=== PATIENT | female | born 1995 | race Caucasian/White ===

== ENCOUNTER 2023-07-21 16:45 | Emergency (ER) | payer BC, OTHER ==
[~2023-07-21] VITALS: Ht 162.6 cm; Wt 72.6 kg
[2023-07-21 16:55] VITALS: BP 127/78; PULSE 67; RESP 14; TEMP 98.3; O2SAT 98
[2023-07-21 17:44] VITALS: TEMP 98.3
[2023-07-21] MEDS ORDERED: NACL 0.9% 1,000 ML IV ONE (18:10)
[2023-07-21] MEDS ORDERED: ONDANSETRON 4 MG/2 ML VIAL IVP ONE (18:10)
[2023-07-21] MEDS ORDERED: PANTOPRAZOLE 40 MG INJ VIAL IVP ONE (18:15)
[2023-07-21 18:46] LABS: BASOPHILS % (AUTO) 0.4 % (0.0-2.0); EOSINOPHILS # (AUTO) 0.1 K/uL (0-0.4); EOSINOPHILS % (AUTO) 0.8 % (0.0-4.0); HEMATOCRIT 38.4 % (36-48); HEMOGLOBIN 12.8 g/dL (12.0-16.0); LYMPHOCYTES # (AUTO) 2.1 K/uL (2.5-16.5); MEAN CORPUSCULAR HEMOGLOBIN 30 pg (27-31); MEAN CORPUSCULAR HGB CONC 33 g/dL (33-37); MEAN CORPUSCULAR VOLUME 89.7 fL (80-94); MONOCYTES # (AUTO) 0.6 K/uL (0.8-1.0); MONOCYTES % (AUTO) 7.5 % (1.7-9.3); NEUTROPHILS # (AUTO) 4.9 K/uL (1.8-7.7); NEUTROPHILS % (AUTO) 64.3 % (42.2-75.2); PLATELET COUNT (AUTO) 219 K/uL (140-450); RED BLOOD CELL COUNT(AUTO) 4.28 MIL/uL (4.20-5.40); RED CELL DISTRIBUTION WIDTH 13.5 % (11.6-13.7); WHITE BLOOD COUNT (AUTO) 7.7 K/uL (4.8-10.8)
[2023-07-21 19:08] LABS: ALBUMIN 3.8 g/dL (3.4-5.0); ANION GAP 8.6 (8-16); CALCIUM 8.6 mg/dL (8.5-10.1); CARBON DIOXIDE 25.2 mmol/L (21-32); CREATININE 0.8 mg/dL (0.6-1.3); POTASSIUM 3.8 mmol/L (3.5-5.1); TOTAL BILIRUBIN 0.7 mg/dL (0.0-1.0)
[2023-07-21] MEDS ORDERED: FAMO-90 PO (19:24)
[2023-07-21] MEDS ORDERED: ALUMINUM HYD/MAG/SIMETHICONE 30 ML, DICYCLOMINE HCL LIQUID 20 MG, LIDOCAINE VISCOUS 2% ... PO ONE ×3 (19:25)
[2023-07-21] MEDS ORDERED: DICYCLOMINE HCL LIQUID 10 MG/5 ML UDC ONE (19:31)
[2023-07-21] MEDS ORDERED: ALUMINUM HYD/MAG/SIMETHICONE 30 ML UDC ONE (19:31)
[2023-07-21 19:41] VITALS: BP 118/62; PULSE 68; RESP 16; O2SAT 98
== END 2023-07-21 19:40 | disposition home or self-care (01) ==
LOC: MED 16:45
DX: R11.10 Vomiting, unspecified (principal); J45.909 Unspecified asthma, uncomplicated; E11.9 Type 2 diabetes mellitus without complications; Z79.4 Long term (current) use of insulin; Z79.899 Other long term (current) drug therapy
CPT/HCPCS: 36415; 80053; 83690; 85025; 96361; 96374; 96375; 99284; C9113; J2405; J7030

== ENCOUNTER 2023-08-25 10:24 | Emergency (ER) | payer BC ==
[~2023-08-25] VITALS: Ht 162.6 cm; Wt 74.8 kg
[~2023-08-25 10:24] MED LIST: FAMO-90 PO
[2023-08-25 10:53] VITALS: BP 122/76; PULSE 76; RESP 20; TEMP 97.9; O2SAT 96
[2023-08-25] MEDS ORDERED: ACETAMINOPHEN 325 MG TAB PO ONE (12:45)
[2023-08-25 13:25] VITALS: BP 122/76; PULSE 76; RESP 20; TEMP 97.9; O2SAT 96
== END 2023-08-25 13:25 | disposition home or self-care (01) ==
LOC: MED 10:24
DX: S93.402A Sprain of unspecified ligament of left ankle, initial encounter (principal); R03.0 Elevated blood-pressure reading, without diagnosis of hypertension; Z79.899 Other long term (current) drug therapy; X58.XXXA Exposure to other specified factors, initial encounter; Y92.89 Other specified places as the place of occurrence of the external cause; Y93.89 Activity, other specified; Y99.8 Other external cause status
CPT/HCPCS: 73610; 81025; 99283